=== PATIENT | male | born 1940 | race Caucasian/White ===

== ENCOUNTER 2023-09-05 07:17 | Day surgery (SDC) | payer OTHER ==
[~2023-09-05] VITALS: Ht 160 cm; Wt 70.0 kg
[2023-09-05] MEDS ORDERED: ALBUTEROL SULFATE 2.5 MG/0.5 ML NEB SOLUTION NEB ONE (07:18)
[2023-09-05] MEDS ORDERED: BENZOCAINE 20% 50 MCG/SPRAY 57 GM TP ONE (07:18)
[2023-09-05] MEDS ORDERED: LIDOCAINE 2% 11 ML JELLY TP ONE (07:18)
[2023-09-05] MEDS ORDERED: LIDOCAINE 4% 50 ML SOLUTION TP ONE (07:18)
[2023-09-05] MEDS ORDERED: PRED-729 PO (07:44)
[2023-09-05] MEDS ORDERED: TAMS0.4C94 PO (07:47)
[2023-09-05] MEDS ORDERED: OMEP1CAP32 PO (07:47)
[2023-09-05] MEDS ORDERED: MONT-35 PO (07:48)
[2023-09-05] MEDS ORDERED: PRED-563 PO (07:49)
[2023-09-05] MEDS ORDERED: DOXY-354 PO (07:50)
[2023-09-05] MEDS ORDERED: CHOL50002 PO (07:51)
[2023-09-05] MEDS ORDERED: ROSU10TA72 PO (07:52)
[2023-09-05] MEDS ORDERED: ACET-3385 PO (07:54)
[2023-09-05] MEDS ORDERED: ALBU18HF12 IH (07:59)
[2023-09-05] MEDS ORDERED: FLUT1BLS IH (08:00)
[2023-09-05] MEDS: SODIUM CHLORIDE 0.9% 1,000 ML IV ONE ×2 (08:11→08:18)
[2023-09-05] MEDS ORDERED: MIDAZOLAM HCL 2 MG/2 ML VIAL ONE (08:23)
[2023-09-05] MEDS ORDERED: FentaNYL CITRATE PF 100 MCG/2 ML VIAL ONE (08:24)
[2023-09-05 09:45] VITALS: PULSE 56; RESP 26; O2SAT 100
[2023-09-05] MEDS ORDERED: MethylPREDNISolone SOD SUCC 125 MG/2 ML VIAL ONE (10:22)
[2023-09-05] MEDS: MethylPREDNISolone SOD SUCC 125 MG/2 ML VIAL IVP ONE (10:26)
== END 2023-09-05 11:40 | disposition home or self-care (01) ==
LOC: SURGERY 07:17
PROVIDERS: ATTEND Internal Medicine Critical Care Medicine
DX: R05.3 Chronic cough (principal); J38.4 Edema of larynx; B37.0 Candidal stomatitis; R91.8 Other nonspecific abnormal finding of lung field; I70.0 Atherosclerosis of aorta; J98.09 Other diseases of bronchus, not elsewhere classified; R06.2 Wheezing; J84.10 Pulmonary fibrosis, unspecified; J98.8 Other specified respiratory disorders; Z98.890 Other specified postprocedural states; Z85.21 Personal history of malignant neoplasm of larynx
CPT/HCPCS: 31623; 87206; 87101; 87220; 87070; 31624; 94640; 71045; 87015; J3010; J2250; J2919; Q9967; J7613; Z7610